=== PATIENT | male | born 2000 | race Caucasian/White ===

== ENCOUNTER → 2021-07-24 | Outpatient (CLI) | payer BC | LOC: ORTHO 10:53 | PROVIDERS: ATTEND Orthopaedic Surgery | DX: S92.001A Unspecified fracture of right calcaneus, initial encounter for closed fracture (principal); X58.XXXA Exposure to other specified factors, initial encounter ==

== ENCOUNTER → 2021-08-20 | Outpatient (CLI) | payer BC ==
--- NOTE | 2021-08-20 10:33 | Diagnostic Imaging Report ---
Indication: Calcaneus fracture. Time of Exam: 9:32 AM No prior radiographs are available for comparison. A fracture through the anterior and middle third of the calcaneus is noted. The fracture line does extend to the subtalar joint. Alignment is anatomic. Fracture lines remain clearly visible. IMPRESSION: Intra-articular calcaneus fracture. Fracture lines remain clearly visible. Dictated by: Dictated on workstation # [id number]
== END ==
LOC: ORTHO 08:59
PROVIDERS: ATTEND Orthopaedic Surgery
DX: S92.001D Unspecified fracture of right calcaneus, subsequent encounter for fracture with routine healing (principal); X58.XXXD Exposure to other specified factors, subsequent encounter
CPT/HCPCS: 73650; G0463; 99213

== ENCOUNTER → 2021-09-25 | Outpatient (CLI) | payer BC ==
--- NOTE | 2021-09-25 11:30 | Diagnostic Imaging Report ---
INDICATION: Follow-up right heel fracture. Time of Exam: 9:21 AM Correlation is made with prior radiographs from 08/20/2021. There is blurring of the fracture lines involving the anterior middle 3rd of the calcaneus consistent with healing. Overall alignment appears anatomic. No new fractures are seen. IMPRESSION: Healing calcaneus fractures which remain partly visible. Dictated by: Dictated on workstation # [id number]
== END ==
LOC: ORTHO 09:13
PROVIDERS: ATTEND Orthopaedic Surgery
DX: Z47.89 Encounter for other orthopedic aftercare (principal); S92.001D Unspecified fracture of right calcaneus, subsequent encounter for fracture with routine healing; X58.XXXD Exposure to other specified factors, subsequent encounter
CPT/HCPCS: 73650; G0463; 99213

== ENCOUNTER → 2021-10-22 | Outpatient (CLI) | payer BC ==
--- NOTE | 2021-10-22 09:26 | Diagnostic Imaging Report ---
Indication: Orthopedic assessment Comparison lateral views of right calcaneus are obtained with comparison made to study of 09/25/2021. There has been further incorporation of callus about the anterior and mid calcaneal fracture lines. There is persistent buckling of the cortex medially along the posterior calcaneus. There is no new fracture or evidence of adverse change. IMPRESSION: Ongoing healing of calcaneal fracture without new abnormality or adverse change. Dictated by: Dictated on workstation # [id number]
== END ==
LOC: ORTHO 09:07
PROVIDERS: ATTEND Orthopaedic Surgery
DX: Z47.89 Encounter for other orthopedic aftercare (principal); S92.001D Unspecified fracture of right calcaneus, subsequent encounter for fracture with routine healing; X58.XXXD Exposure to other specified factors, subsequent encounter
CPT/HCPCS: 73650; G0463; 99213